=== PATIENT | female | born 1985 | race Two or more races ===

== ENCOUNTER 2023-04-29 13:50 | Emergency (ER) | payer OTHER, SELFPAY ==
[2023-04-29 14:07] VITALS: BP 120/78; PULSE 85; RESP 18; O2SAT 99; BMI 34.2
--- NOTE | 2023-04-29 14:59 | US_ITS ---
[place] [id number] Patient Name: VINICIO PALACIO MRN: [id number] date: 1985 Sex: F Assigned Patient Location: ER Current Patient Location: .MAIN Accession/Order Number: [id number] Exam Date: 04/29/2023 15:00 Report Date: 04/29/2023 16:01 At the request of: VIKA LOPEZ Procedure: US OB <= 14 weeks fetus PROCEDURE: US OB <= 14 weeks fetus, 04/29/2023 3:00 PM EDT CLINICAL INDICATIONS: Vaginal bleeding, first trimester , cramping, symptoms for one day 3 para 2 LMP 01/25/2023 Expected gestational age by LMP: 13 weeks 3 days Expected NEPTALI by LMP: 11/01/2023 COMPARISON: None TECHNIQUE: Transabdominal first trimester obstetric sonogram, grayscale color and spectral evaluation. FINDINGS: Uterus: A single living intrauterine is identified. Intrauterine gestational sac, pole, cardiac activity is noted. The heart rate 165 bpm. Mean gestational sac size: 5.79 cm. crown-rump length: 5.7 cm Sonographic gestational age: 12 weeks 2 days +/- 1 week 1 day Sonographic NEPTALI: 11/09/2023 No significant perigestational hemorrhage Maternal uterine leiomyomata are favored measuring up to; 2.2 x 2.5 x 2.6 cm intramural dorsal body 3.8 x 2.3 x 2.2 cm intramural left fundal Maternal ovaries are not identified. No maternal pelvic mass or free fluid US/US OB <= 14 weeks fetus IMPRESSION: 1. living intrauterine , sonographic gestational age of 12 weeks 2 days +/- 1 week 1 day 2. Sonographic NEPTALI 11/09/2023 3. No significant perigestational hemorrhage 4. Nonvisualization maternal ovaries bilaterally 5. Intramural maternal uterine leiomyomata as described Electronically authenticated by: MARLEE ROWLEY Date: 04/29/2023 16:01
--- NOTE | 2023-04-29 15:02 | ED_ITS ---
HPI - General Chief complaint: Urogenital-Female Stated complaint: STOMACH PAIN-12 WKS Time Seen by Provider: 04/29/23 14:57 Source: patient Mode of arrival: walk-in Limitations: language barrier History of Present Illness HPI Narrative: this patient is here by herself and said a family member may come to the hospital later. She indicates that she's had a small amount of vaginal bleeding and lower abdominal cramping. She is worried about losing her baby. She sells is that this is her 3rd . She says she is going to a clinic in [facility] and has had one previous visit. She's not had any other recent illnesses. We will use a instrument maker and repairer to get more information as it relates to her . Related Data Allergies Allergy/AdvReac Type Severity Reaction Status Date / Time No Known Drug Allergies Allergy Verified 04/29/23 14:13 PFSH PFS Social History Smoking status: Never smoker Exam Narrative Exam Narrative: awake alert appears in no discomfort vital signs are stable. Her belly is nontender to palpation. She's not actively cramping at the time my examination. She does have normal bowel sounds. There is no trauma or injury. We will start with a ultrasound to evaluate status of this since it doesn't sound like she's had one as of yet. did have routine visit in [place] as ment ioned earlier. Constitutional Vital Signs, click to edit/add: Last Vital Signs Pulse 85 04/29/23 14:07 Resp 18 04/29/23 14:07 BP 120/78 04/29/23 14:07 Pulse Ox 99 04/29/23 14:07 O2 Del Method Room Air 04/29/23 14:07 Course Vital Signs Vital signs: Vital Signs Pulse Rate 85 04/29/23 14:07 Respiratory Rate 18 04/29/23 14:07 Blood Pressure 120/78 04/29/23 14:07 Pulse Oximetry 99 04/29/23 14:07 Oxygen Delivery Method Room Air 04/29/23 14:07 Pulse Rate 85 04/29/23 14:07 Respiratory Rate 18 04/29/23 14:07 Blood Pressure 120/78 04/29/23 14:07 Pulse Oximetry 99 04/29/23 14:07 Oxygen Delivery Method Room Air 04/29/23 14:07 MDM - OB/Uterine Contractions MDM Narrative Medical decision making narrative: ultrasonography was conducted by her gear technician here. She reports a intrauterine of twelve weeks two days. There is some uterine fibroids. She did not notice any other abnormal sites of bleeding. This will be discussed with the patient. She should be at rest until she can follow up with her DIVIDEND DEPOSIT ENTRY CLERK. We'll give her a copy of a written report one radiologist evaluates the scan. Discharge Plan Discharge Chief Complaint: Urogenital-Female Clinical Impression: Threatened Patient Disposition: Home, Self-Care Time of Disposition Decision: 15:48 Additional Instructions: rest for 24-48 hours. [facility]-up [facility]. Take the ultrasound report with you Stand Alone Forms: Portal Instructions Referrals: Physician,Non-Staff, MD [Primary Care Provider] - 1 week
[2023-04-29 15:40] LABS: Bilirubin Urine NEGATIVE (NEGATIVE); Blood Urine LARGE (NEGATIVE); Clarity Urine CLEAR (CLEAR); Color Urine LT. YELLOW (YELLOW); Glucose Urine UA NEGATIVE (NEGATIVE); Ketones Urine NEGATIVE (NEGATIVE); Leukocyte Esterase Urine TRACE (NEGATIVE); Nitrite Urine NEGATIVE (NEGATIVE); Protein Urine TRACE mg/dL (NEG/TRACE); Specific Gravity Urine 1.015 (1.005-1.025); Urobilinogen Urine 0.2 EU/dL (0.2-1.0); pH Urine 6.5 (5.0-9.0)
[2023-04-29 15:46] LABS: Urine Microscopic Indicated YES
[2023-04-29 15:58] LABS: Bacteria Urine SMALL #/HPF (NONE SEEN); Cast Seen? SEEN #/LPF (NONE SEEN); Crystals Seen? None Seen #/HPF (None Seen); Hyaline Casts Urine RARE; Mucus Urine NONE SEEN (NONE SEEN); Squamous Epithelial Cell Urine FEW #/LPF (NONE/RARE); Urine Culture Indicated YES
[2023-04-29 16:14] VITALS: BP 119/68; PULSE 77; RESP 16; O2SAT 99
== END 2023-04-29 16:16 | disposition home or self-care (01) ==
PROVIDERS: Emergency Provider Emergency Medicine Emergency Medical Services
DX: O20.0 Threatened abortion (principal); Z3A.12 12 weeks gestation of pregnancy
CPT/HCPCS: 76801; 81001; 87086; 99284